=== PATIENT | male | born 1985 | race American Indian/Alaskan Native ===

== ENCOUNTER 2019-03-18 15:30 | Emergency (ER) | payer MEDICAID ==
[2019-03-18 16:32] LABS: Bilirubin,Urine NEG (Negative); Blood,Urine NEG (Negative); Color,Urine Yellow (Yellow); Mucus,Urine FEW /HPF; Protein,Urine <15 mg/dL mg/dL (Negative); WBC,Urine < 1.0 /HPF (0.0-6.0)
--- NOTE | 2019-03-18 16:33 | Emergency Department Report ---
ED Psych HPI - General Chief Complaint: Psych Stated Complaint: MANIC EPISODE Time Seen by Provider: 03/18/19 16:22 Source: EMS Mode of arrival: Ambulatory - History of Present Illness Initial Comments: Patient is a 33-year-old male presents to the ER for new place to stay. Patient states he is having auditory and visual hallucination. Patient is rambling on about random storage. -: Sudden Associated Psychiatric Symptoms: racing thoughts, auditory hallucinations, visual hallucinations History of same: Yes Quality: constant Improves With: none Worsens With: none Associated Symptoms: denies: confusion, headache, shortness of breath, nausea, vomiting, syncope, insomnia - Related Data Allergies Allergy/AdvReac Type Severity Reaction Status Date / Time No Known Allergies Allergy Unverified 03/18/19 16:14 ED Review of Systems ROS: Stated complaint: MANIC EPISODE Other details as noted in HPI Constitutional: denies: chills, fever Eyes: denies: eye pain, eye discharge, vision change ENT: denies: ear pain, throat pain Respiratory: denies: cough, shortness of breath, wheezing Cardiovascular: denies: chest pain, palpitations Endocrine: no symptoms reported Gastrointestinal: denies: abdominal pain, nausea, diarrhea Genitourinary: denies: urgency, dysuria Musculoskeletal: denies: back pain, joint swelling, arthralgia Skin: denies: rash, lesions Neurological: denies: headache, weakness, paresthesias Psychiatric: auditory hallucinations, visual hallucinations. denies: anxiety, depression, homicidal thoughts, suicidal thoughts Hematological/Lymphatic: denies: easy bleeding, easy bruising ED Past Medical Hx - Past Medical History Previous Medical History?: Yes Hx Hypertension: Yes Hx Psychiatric Treatment: (Schizophrenia, bipolar) - Surgical History Past Surgical History?: No - Social History Smoking Status: Current Every Day Smoker Substance Use Type: Alcohol ED Physical Exam - General Limitations: No Limitations General appearance: alert, in no apparent distress - Head Head exam: Present: atraumatic, normocephalic - Eye Eye exam: Present: normal appearance - ENT ENT exam: Present: mucous membranes moist - Neck Neck exam: Present: normal inspection - Respiratory Respiratory exam: Present: normal lung sounds bilaterally. Absent: respiratory distress - Cardiovascular Cardiovascular Exam: Present: regular rate, normal rhythm. Absent: systolic murmur, diastolic murmur, rubs, gallop - GI/Abdominal GI/Abdominal exam: Present: soft, normal bowel sounds - Rectal Rectal exam: Present: deferred - Extremities Exam Extremities exam: Present: normal inspection - Back Exam Back exam: Present: normal inspection - Neurological Exam Neurological exam: Present: alert, oriented X3 - Psychiatric Psychiatric exam: Present: manic - Expanded Psychiatric Exam Expanded Focused psych exam: Present: pressured speech, restlessness, flight of ideas, loose associations - Skin Skin exam: Present: warm, dry, intact, normal color. Absent: rash ED Course Vital Signs 03/18/19 16:11 Temperature 98.4 F Pulse Rate 110 H Respiratory 18 Rate Blood Pressure 119/88 O2 Sat by Pulse 98 Oximetry - Reevaluation(s) Reevaluation #1: Initial evaluation done. Patient finding consistent with acute psychosis and patient placed on 1013. 03/18/19 16:30 Reevaluation #2: Discussed all results with patient. Patient is Medically cleared, Patient will remain on a 1013 in the ER until excepted into appropriate psychiatric facility. Patient agrees to plan of care. 03/18/19 18:49 ED Medical Decision Making - Lab Data Result diagrams: 03/18/19 16:35 03/18/19 16:35 - Medical Decision Making Patient is 33-year-old male presents for a new place to live. Patient found be having acute psychosis and patient is quite gentle with flights of ideas and appears to have stable to care for himself. Patient was placed on a 1013. Mental health consult. Labs unremarkable. Patient is medically cleared. - Differential Diagnosis mental evaluation. Medical clearance. Acute psychosis Critical care attestation.: If time is entered above; I have spent that time in minutes in the direct care of this critically ill patient, excluding procedure time. ED Disposition Clinical Impression: Acute psychosis Disposition: DC/TX-65 PSY HOSP/PSY UNIT Is pt being admited?: No Does the pt Need Aspirin: No Condition: Stable Additional Instructions: Patient is medically cleared Time of Disposition: 18:50
[2019-03-18 16:40] LABS: Amphetamine Screen,Urine PRESUMPTIVE NEGATIVE; Benzodiazepines Screen,Urine PRESUMPTIVE NEGATIVE; Cannabinoid Screen,Urine PRESUMPTIVE NEGATIVE; Cocaine Screen,Urine PRESUMPTIVE NEGATIVE; Methadone Screen,Urine PRESUMPTIVE NEGATIVE; Opiate Screen,Urine PRESUMPTIVE NEGATIVE
[2019-03-18 16:57] LABS: Hematocrit 43.8 % (35.5-45.6); Hemoglobin 15.2 gm/dl (11.8-15.2); Mean Corpuscular HGB Conc 35 % (32-34); Mean Corpuscular Volume 98 fl (84-94); Platelet Count 263 K/mm3 (140-440); Red Blood Count 4.47 M/mm3 (3.65-5.03); Red Cell Distribution Width 13.9 % (13.2-15.2)
[2019-03-18 17:10] LABS: BUN/Creatinine Ratio 8; Blood Urea Nitrogen 9 mg/dL (9-20); Calcium 9.3 mg/dL (8.4-10.2); Hemolysis Index 6
[2019-03-18 18:08] LABS: Band Neutrophils # (Manual) 0.4 K/mm3; Total Cells Counted 100
[2019-03-18 18:09] LABS: Anisocytosis 1+; Ovalocytes 1+
[2019-03-18] MEDS ORDERED: HALDOL PO PRN (20:10)
[2019-03-18] MEDS: HALDOL PO SCH (21:59)
[2019-03-18] MEDS ORDERED: NON-FORMULARY (Haloperidol [Haloperidol] 10 MG) PO SCH (22:00)
[2019-03-19] MEDS: HALDOL PO SCH ×2 (09:35→23:02)
[2019-03-19 17:21] LABS: Alanine Aminotransferase 24 units/L (7-56); Albumin 4.1 g/dL (3.9-5)
[2019-03-19 17:31] LABS: Bilirubin,Direct < 0.2 mg/dL (0-0.2)
--- NOTE | 2019-03-19 18:03 | Consultation ---
History of Present Illness - Reason for Consult Consult date: 03/19/19 Reason for consult: psych eval - Chief Complaint Chief complaint: "She told me to come and get my medicines adjusted." - History of Present Psychiatric Illness "My thoughts were rushing." He states the medicines "quiet my thoughts." 33 yo M arrived to [facility]ED and placed on a 1013 for "acute psychosis- avh". After several minutes of questions regarding his medicine and treatment, he says he takes Invega monthly but has not had it every month. He says he takes 234mg and takes either seroquel or haldol with it. He also takes 1500mg of depakote. He also says he is on the ACT team with [employer] [facility] [employer]. He states he can't sleep like he needs to. He says he has a roommate and attends a day program through [employer]. He reports a history of Bipolar and Schizophrenia. 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 Medications and Allergies Allergies Allergy/AdvReac Type Severity Reaction Status Date / Time No Known Allergies Allergy Unverified 03/18/19 16:14 Home Medications Medication Instructions Recorded Confirmed Last Taken Type Divalproex ER [DepaKOTE ER] 1,000 mg PO QHS 03/18/19 03/18/19 03/18/19 History Haloperidol 10 mg PO BID 03/18/19 03/18/19 03/18/19 History Active Meds: Active Medications Divalproex Sodium (Depakote Er) 1,000 mg PO QHS [facility] Last Admin: 03/18/19 21:59 Dose: 1,000 mg Documented by: Haloperidol (Haldol) 10 mg PO BID [facility] Last Admin: 03/19/19 09:35 Dose: 10 mg Documented by: Mental Status Exam - Vital signs Last Vital Signs Temp 98.2 F 03/19/19 16:31 Pulse 95 H 03/19/19 16:31 Resp 18 03/19/19 16:31 BP 131/86 03/19/19 16:31 Pulse Ox 99 03/19/19 16:31 - Exam Orientation: time, place, person Affect: other (constricted) Mood: calm Thought content: other (denies SI/HI) Thought Process: Circumstantial ("thoughts were rushing") Perceptions: other (denies and then says, meds "quiet my thoughts") Speech: normal rate and pattern Concentration: focused Motor activity: normal Level of consciousness: alert Memory: Intact Sleep Symptoms: Difficulty Falling Asleep Interaction: cooperative (insight is minimal) Results Result Diagrams: 03/18/19 16:35 03/18/19 16:35 Abnormal lab results 03/18/19 Range/Units 16:35 Monocytes % (Manual) 19.0 H (0.0-7.3) % Monocytes # (Manual) 1.9 H (0.0-0.8) K/mm3 All other labs normal. Assessment and Plan Assessment and plan: Impression: hx schizoaffective bipolar type ddx: bipolar with psychosis recommendation: contact [facility] ACT team to determine his status and recent medications He remembers getting Invega Sustenna 234mg last week but missed the month before. Once information is obtained, consult literature on the missed invega sustenna injection, as the recommendation of the next injection dose varies, depending on when his injection was done prior to the one last week. give haldol 10mg bid as ordered and monitor for eps give depakote er 1500mg hs. LFTs ordered. VPA level ordered for tomorrow. dispo: follow up in 24 hours to determine if he should follow up with ACT services or inpatient psych treatment will staff with Dr. Nelson
--- NOTE | 2019-03-20 09:37 | Progress Note ---
Subjective - Reason for Consult Consult date: 03/20/19 Reason for consult: Psychiatry Follow-up - Chief Complaint Chief complaint: "Hello" 33 yo AA male who presented to the Er for acute psychosis. Today the patient was labile during the assessment. He was asked several questions about his mental health, but his answers were not logical. The patient smile and laugh inappropriately during the interview. He was able to state that he receive the Invega injection. He denies Si/Hi's and VH's. He would not confirm or deny AH's. - Mental Status Exam - Vital signs Last Vital Signs Temp 97.6 F 03/20/19 07:54 Pulse 68 03/20/19 07:54 Resp 18 03/20/19 07:54 BP 139/87 03/20/19 07:54 Pulse Ox 98 03/20/19 07:54 - Exam Narrative exam: MSE: Appearance: cooperative Behavior: regular eye contact Speech: regular rate and tone Mood: labile Affect: congruent to mood Thought Process: tangential, disorganized Thought Content: denies SI/HI's and VH's Motor Activity: ambulatory Cognition: A/O x 3 Insight: poor Judgment: poor Assessment and Plan Impression: Unspecified Psychosis. Today patient was labile during the assessment. DDx: Schizophrenia, Bipolar Do with psychosis Recommendation/Plan: Continue 1013 and gather collateral information. Continue Depakote 1500 mg PO HS for mod, and Haldol 10 mg Po BID for psychosis. Dispo: The patient was referred to inpatient psy services. Will staff with Dr Nikhil Nelson.
[2019-03-20] MEDS: HALDOL PO SCH ×2 (10:56→21:46)
[2019-03-21] MEDS: HALDOL PO SCH ×2 (10:54→22:07)
--- NOTE | 2019-03-21 11:15 | Progress Note ---
Subjective - Reason for Consult Consult date: 03/21/19 Reason for consult: Psychiatry Follow=up - Chief Complaint Chief complaint: "Things are getting better" 33 yo AA male who presented to the Er for acute psychosis. Today the patient was calm and cooperative during the assessment. He stated that he feel better mentally when asked. He wasn't preoccupied during the interview as he was yesterday. He stated that he slept well last night. He denies SI/HI's and AVH's. He denies any side effects of his medications. Mental Status Exam - Vital signs Last Vital Signs Temp 98.4 F 03/21/19 08:12 Pulse 80 03/21/19 08:12 Resp 18 03/21/19 08:12 BP 109/83 03/21/19 08:12 Pulse Ox 98 03/21/19 08:12 - Exam Narrative exam: MSE: Appearance: calm, cooperative Behavior: regular eye contact Speech: regular rate and tone Mood: 'okay" Affect: congruent to mood Thought Process: circumstantial Thought Content: denies SI/HI's and AVH's Motor Activity: ambulatory Cognition: A/O x 3 Insight: variable to fair Judgment: variable to fair Assessment and Plan Impression: Unspecified Psychosis. Today patient was calm and cooperative during the assessment. DDx: Schizophrenia, Bipolar Do with psychosis Recommendation/Plan: Reevaluate the patient's 1013 in 24 hours. Continue Depakote 1500 mg PO HS for mod, and Haldol 10 mg Po BID for psychosis. Dispo: If the patient's 1013 is rescinded in 24 hours, he can follow up with [facility] for outpatient psy services. Will staff with Dr Nikhil Nelson.
[2019-03-22] MEDS: HALDOL PO SCH (09:59)
--- NOTE | 2019-03-22 15:10 | Progress Note ---
Subjective - Reason for Consult Consult date: 03/22/19 Reason for consult: Psychiatric Follow-up Evaluation - Chief Complaint Chief complaint: "I feel good." Patient is a 33 yo AA male who presented to the ER for acute psychosis. Today the patient is cooperative but anxious during the assessment. He reports good sleep and appetite. Patient denies SI/HI's, A/VH's, and delusions. Upon discharge patient will return to a shelter, [address] [place] [address]. [id number]. Provider called patient's mom [phone] to gain collateral at 3:22pm. Patient reports medication compliance. Medication is effective. No side effects noted/reported. Per assigned RN patient has not exhibited any symptoms of psychosis or behavioral disturbances. Mental Status Exam - Vital signs Last Vital Signs Temp 98.7 F 03/22/19 14:51 Pulse 86 03/22/19 14:51 Resp 18 03/22/19 14:51 BP 132/90 03/22/19 14:51 Pulse Ox 99 03/22/19 14:51 - Exam Narrative exam: Mental Status Exam Appearance: anxious, cooperative Behavior: regular eye contact Speech: regular rate and tone Mood: "I feel good" Affect: congruent to mood Thought Process: circumstantial Thought Content: denies SI/HI's, AVH's, delusions Motor Activity: ambulatory Cognition: A/O x 3 Insight: fair Judgment: fair Assessment and Plan Impression: Unspecified Psychosis. Today the patient is cooperative but anxious during the assessment. He denies SI/HI's, A/VH's, and delusions. At the time of discharge patient is in no imminent danger to self/others. DDx: Schizophrenia, Bipolar Do with psychosis Recommendation/Plan: 1. Will rescind 1013. No longer meets criteria. 2. Continue Depakote 1500 mg PO HS for mood and Haldol 10 mg Po BID for psychosis. Disposition: Will rescind patient's 1013. Patient can follow up with [facility] for outpatient psychiatric services. Will staff with Dr Nikhil Nelson.
[2019-03-22 20:16] VITALS: BP 116/74
== END 2019-03-22 20:50 | disposition home or self-care (01) ==
LOC: EEVIPCON 15:30 → ED 15:30
DX: F29 Unspecified psychosis not due to a substance or known physiological condition (principal)
CPT/HCPCS: 36415; 80048; 80076; 80164; 80307; 80320; 81001; 82150; 83690; 85007; 85025; G0480

== ENCOUNTER 2019-04-09 22:51 | Emergency (ER) | payer MEDICAID ==
[2019-04-09 23:47] LABS: Basophils # (Auto) 0.1 K/mm3 (0.0-0.1); Eosinophils # (Auto) 0.1 K/mm3 (0.0-0.4); Eosinophils % (Auto) 0.9 % (0.0-4.3); Hematocrit 40.7 % (35.5-45.6); Hemoglobin 14.4 gm/dl (11.8-15.2); Lymphocytes # (Auto) 4.2 K/mm3 (1.2-5.4); Mean Corpuscular HGB Conc 35 % (32-34); Mean Corpuscular Volume 98 fl (84-94); Monocytes # (Auto) 1.3 K/mm3 (0.0-0.8); Monocytes % (Auto) 14.6 % (0.0-7.3); Platelet Count 263 K/mm3 (140-440); Red Blood Count 4.18 M/mm3 (3.65-5.03); Red Cell Distribution Width 13.7 % (13.2-15.2)
[2019-04-10 00:10] LABS: Bilirubin,Urine NEG (Negative); Blood,Urine NEG (Negative); Color,Urine Yellow (Yellow); Protein,Urine <15 mg/dL mg/dL (Negative)
[2019-04-10 00:15] LABS: Amphetamine Screen,Urine PRESUMPTIVE NEGATIVE; Benzodiazepines Screen,Urine PRESUMPTIVE NEGATIVE; Cannabinoid Screen,Urine PRESUMPTIVE NEGATIVE; Cocaine Screen,Urine PRESUMPTIVE NEGATIVE; Methadone Screen,Urine PRESUMPTIVE NEGATIVE; Opiate Screen,Urine PRESUMPTIVE NEGATIVE
[2019-04-10 00:37] LABS: BUN/Creatinine Ratio 9; Blood Urea Nitrogen 9 mg/dL (9-20); Calcium 9.1 mg/dL (8.4-10.2); Hemolysis Index 11
--- NOTE | 2019-04-10 01:09 | Emergency Department Report ---
<GENARO DOBBS - Last Filed: 04/10/19 01:06> ED Psych HPI - General Chief Complaint: Psych Stated Complaint: MED REFILL Time Seen by Provider: 04/10/19 01:02 Source: patient Mode of arrival: Ambulatory - History of Present Illness Initial Comments: Patient is 33 years old male with history of bipolar disorder. Patient presented to the ER stating that she is not feeling well and he wanted to be assessed by psychiatric doctor. He stated that he is out of his Risperdal and Inderal for a while. Patient denies any auditory or visual hallucination. He also denied any suicidal or homicidal ideation. MD Complaint: other - Related Data Home Medications Medication Instructions Recorded Confirmed Last Taken Divalproex ER [DepaKOTE ER] 1,000 mg PO QHS 03/18/19 03/18/19 03/18/19 Haloperidol 10 mg PO BID 03/18/19 03/18/19 03/18/19 Allergies Allergy/AdvReac Type Severity Reaction Status Date / Time cocaine Allergy Vomiting Verified 04/09/19 23:12 ED Review of Systems Comment: All other systems reviewed and negative Constitutional: denies: chills, fever Respiratory: denies: cough, shortness of breath, SOB with exertion Cardiovascular: denies: chest pain, palpitations Gastrointestinal: denies: abdominal pain, nausea, vomiting, diarrhea, constipation, hematemesis, melena, hematochezia Genitourinary: denies: urgency Musculoskeletal: denies: back pain Neurological: denies: headache, weakness, numbness, paresthesias, confusion ED Past Medical Hx - Past Medical History Previous Medical History?: Yes Hx Hypertension: Yes Hx Psychiatric Treatment: (Schizophrenia, bipolar) Additional medical history: brain injury - Surgical History Past Surgical History?: Yes Additional Surgical History: brain - Social History Smoking Status: Never Smoker Substance Use Type: None - Medications Home Medications: Home Medications Medication Instructions Recorded Confirmed Last Taken Type Divalproex ER [DepaKOTE ER] 1,000 mg PO QHS 03/18/19 03/18/19 03/18/19 History Haloperidol 10 mg PO BID 03/18/19 03/18/19 03/18/19 History ED Physical Exam - General Limitations: No Limitations General appearance: alert, in no apparent distress - Head Head exam: Present: atraumatic, normocephalic, normal inspection - Eye Eye exam: Present: normal appearance, PERRL - ENT ENT exam: Present: normal exam, normal orophraynx, mucous membranes moist - Neck Neck exam: Present: normal inspection, full ROM. Absent: tenderness, meningismus, lymphadenopathy, thyromegaly - Respiratory Respiratory exam: Present: normal lung sounds bilaterally - Cardiovascular Cardiovascular Exam: Present: regular rate, normal rhythm, normal heart sounds - GI/Abdominal GI/Abdominal exam: Present: soft, normal bowel sounds. Absent: distended, tenderness, guarding, rebound, rigid, organomegaly, mass, bruit, pulsatile mass, hernia - Extremities Exam Extremities exam: Present: normal inspection, full ROM, normal capillary refill. Absent: pedal edema, calf tenderness - Back Exam Back exam: Present: normal inspection, full ROM. Absent: tenderness, CVA tenderness (R), CVA tenderness (L), muscle spasm, paraspinal tenderness, vertebral tenderness - Neurological Exam Neurological exam: Present: alert, oriented X3, CN II-XII intact, normal gait - Psychiatric Psychiatric exam: Present: normal mood, flat affect. Absent: depressed, agitated, anxious, manic, homicidal ideation, suicidal ideation - Skin Skin exam: Present: warm, intact, normal color ED Medical Decision Making - Lab Data Result diagrams: 04/09/19 23:17 04/09/19 23:17 ED Disposition Clinical Impression: Bipolar disorder Disposition: Z-07 PAT REG,NO TRIAGE Is pt being admited?: No Condition: Stable Instructions: Bipolar Disorder (ED) Additional Instructions: He is return if there is any homicidal suicidal ideation Referrals: [facility] [Outside] - 3-5 Days PRIMARY CARE, [Primary Care Provider] - 3-5 Days <PINO SUN - Last Filed: 04/10/19 15:03> ED Review of Systems ROS: Stated complaint: MED REFILL Other details as noted in HPI ED Course Vital Signs 04/10/19 04/10/19 05:51 08:50 Temperature 98.1 F 97.9 F Pulse Rate 61 106 H Respiratory 18 15 Rate Blood Pressure 147/89 114/82 [Right] O2 Sat by Pulse 100 100 Oximetry ED Medical Decision Making - Lab Data Result diagrams: 04/09/19 23:17 04/09/19 23:17 - Medical Decision Making addendum by Pino Sun M.D. On my exam the patient denies any homicidal suicidal ideation the patient was evaluated by mental health and deemed not a danger to himself either Critical care attestation.: If time is entered above; I have spent that time in minutes in the direct care of this critically ill patient, excluding procedure time. ED Disposition Is pt being admited?: No Does the pt Need Aspirin: No
[2019-04-10 15:16] VITALS: BP 121/78
== END 2019-04-10 15:10 | disposition left against medical advice (07) ==
LOC: EEVIPCON 22:51 → ED 22:51
DX: F31.9 Bipolar disorder, unspecified (principal); I10 Essential (primary) hypertension; F20.9 Schizophrenia, unspecified; F14.10 Cocaine abuse, uncomplicated; Z79.899 Other long term (current) drug therapy; Z98.890 Other specified postprocedural states
CPT/HCPCS: 36415; 80048; 80307; 80320; 81001; 85025; G0480

== ENCOUNTER 2019-07-23 22:47 | Emergency (ER) | payer MEDICAID ==
[2019-07-23 23:44] LABS: Basophils # (Auto) 0.1 K/mm3 (0.0-0.1); Basophils % (Auto) 0.7 % (0.0-1.8); Eosinophils # (Auto) 0.1 K/mm3 (0.0-0.4); Hematocrit 42.7 % (35.5-45.6); Hemoglobin 14.6 gm/dl (11.8-15.2); Lymphocytes # (Auto) 3.9 K/mm3 (1.2-5.4); Lymphocytes % (Auto) 37.9 % (13.4-35.0); Mean Corpuscular HGB Conc 34 % (32-34); Mean Corpuscular Volume 96 fl (84-94); Monocytes # (Auto) 1.3 K/mm3 (0.0-0.8); Monocytes % (Auto) 12.6 % (0.0-7.3); Platelet Count 252 K/mm3 (140-440); Red Blood Count 4.43 M/mm3 (3.65-5.03)
[2019-07-24 00:03] LABS: BUN/Creatinine Ratio 12; Blood Urea Nitrogen 13 mg/dL (9-20); Calcium 8.9 mg/dL (8.4-10.2); Hemolysis Index 14
[2019-07-24 01:23] LABS: Bilirubin,Urine NEG (Negative); Blood,Urine NEG (Negative); Color,Urine Straw (Yellow); Protein,Urine <15 mg/dL mg/dL (Negative); Urobilinogen,Urine < 2.0 mg/dL (<2.0); WBC,Urine < 1.0 /HPF (0.0-6.0)
[2019-07-24 01:30] LABS: Amphetamine Screen,Urine PRESUMPTIVE NEGATIVE; Benzodiazepines Screen,Urine PRESUMPTIVE NEGATIVE; Cannabinoid Screen,Urine PRESUMPTIVE NEGATIVE; Cocaine Screen,Urine PRESUMPTIVE NEGATIVE; Methadone Screen,Urine PRESUMPTIVE NEGATIVE; Opiate Screen,Urine PRESUMPTIVE NEGATIVE
--- NOTE | 2019-07-24 02:31 | Emergency Department Report ---
ED Psych HPI - General Chief Complaint: Psych Stated Complaint: HOMICIDAL/SUICIDAL/MH EVAL Time Seen by Provider: 07/24/19 01:29 Source: patient Mode of arrival: Ambulatory - History of Present Illness Initial Comments: 34-year-old male with history of schizophrenia and bipolar disorder presents to ED with report of suicidal or homicidal ideation. Patient reported SI and HI to triage nurse, however he now tells me that he no longer having SI or HI. Patient needs much redirection, and tends to have tangential speech. Patient reports he is noncompliant with his psychiatric medications. MD Complaint: suicidal ideation -: unknown Associated Psychiatric Symptoms: suicidal ideation, homicidal ideation Quality: changing over time Improves With: none Worsens With: none Associated Symptoms: denies other symptoms Treatments Prior to Arrival: none If Self Harm: admits thoughts of - Related Data Home Medications Medication Instructions Recorded Confirmed Last Taken Divalproex ER [DepaKOTE ER] 1,000 mg PO QHS 03/18/19 03/18/19 03/18/19 Haloperidol 10 mg PO BID 03/18/19 03/18/19 03/18/19 Allergies Allergy/AdvReac Type Severity Reaction Status Date / Time cocaine Allergy Vomiting Verified 04/09/19 23:12 ED Review of Systems ROS: Stated complaint: HOMICIDAL/SUICIDAL/MH EVAL Other details as noted in HPI Comment: All other systems reviewed and negative Psychiatric: homicidal thoughts, suicidal thoughts. denies: auditory hallucinations, visual hallucinations ED Past Medical Hx - Past Medical History Previous Medical History?: Yes Hx Hypertension: Yes Hx Psychiatric Treatment: (Schizophrenia, bipolar) Additional medical history: brain injury - Surgical History Past Surgical History?: Yes Additional Surgical History: brain - Social History Smoking Status: Current Every Day Smoker Substance Use Type: Cocaine, Marijuana - Medications Home Medications: Home Medications Medication Instructions Recorded Confirmed Last Taken Type Divalproex ER [DepaKOTE ER] 1,000 mg PO QHS 03/18/19 03/18/19 03/18/19 History Haloperidol 10 mg PO BID 03/18/19 03/18/19 03/18/19 History ED Physical Exam - General Limitations: No Limitations General appearance: alert, in no apparent distress - Head Head exam: Present: atraumatic, normocephalic - Eye Eye exam: Present: normal appearance - ENT ENT exam: Present: mucous membranes moist - Neck Neck exam: Present: normal inspection - Respiratory Respiratory exam: Present: normal lung sounds bilaterally. Absent: respiratory distress - Cardiovascular Cardiovascular Exam: Present: regular rate, normal rhythm - GI/Abdominal GI/Abdominal exam: Absent: distended - Extremities Exam Extremities exam: Present: normal inspection - Neurological Exam Neurological exam: Present: alert, oriented X3 - Psychiatric Psychiatric exam: Present: normal affect, normal mood - Skin Skin exam: Present: warm, dry, intact, normal color ED Course Vital Signs 07/24/19 07/24/19 01:45 08:39 Temperature 98.3 F 97.7 F Pulse Rate 98 H 93 H Respiratory 16 Rate Blood Pressure 129/94 140/87 [Left] O2 Sat by Pulse 99 98 Oximetry ED Medical Decision Making - Lab Data Result diagrams: 07/23/19 23:08 07/23/19 23:08 - Medical Decision Making 34 yo M with hx of bipolar and schizophrenia presents with SI and HI "all day." Pt will be placed on a 1013 for mental health evaluation. - Differential Diagnosis SI, HI Critical care attestation.: If time is entered above; I have spent that time in minutes in the direct care of this critically ill patient, excluding procedure time. ED Disposition Clinical Impression: Mood disorder Disposition: DC-01 TO HOME OR SELFCARE Is pt being admited?: No Condition: Stable Instructions: Suicide Prevention for Adults (ED) Additional Instructions: Please follow-up with your normal outpatient psychiatric services. Return to the emergency Department with any worsening of your symptoms, thoughts of harming yourself or others, or with any acute distress. Referrals: [facility] [Outside] - 2-3 Days [facility] [Outside] - 2-3 Days
[2019-07-24 08:40] VITALS: BP 140/87
--- NOTE | 2019-07-24 09:38 | Consultation ---
History of Present Illness - Reason for Consult Consult date: 07/24/19 Reason for consult: Mental Health Evaluation Requesting physician: VINCENT VALENTE - Chief Complaint Chief complaint: "I am okay" - History of Present Psychiatric Illness 34 y.o. AA male who presented to the Er for SI's. Today the patient was calm and cooperative during the assessment. He stated that he came to ER because he didn 't feel well. He stated that he may have mentioned something about being suicidal, but cannot recall, He denies SI's when asked. He denies a previous suicide attempt. He stated that he is seen by [facility] for outpatient psy services and receive the monthly Invega injection that will be due this month on 28 Jul 2019. Per collateral information from the patient's thermodynamicist Thomas at [phone], he stated that the patient is seen at [facility] and can return home once discharged. The patient denies SI/HI's and AVH's. He denies erratic sleep and a poor appetite. He denies recreational drug use and alcohol consumption (etoh). He denies any abuse at his current senior care. Medications and Allergies Allergies Allergy/AdvReac Type Severity Reaction Status Date / Time cocaine Allergy Vomiting Verified 04/09/19 23:12 Home Medications Medication Instructions Recorded Confirmed Last Taken Type Divalproex ER [DepaKOTE ER] 1,000 mg PO QHS 03/18/19 03/18/19 03/18/19 History Haloperidol 10 mg PO BID 03/18/19 03/18/19 03/18/19 History Past psychiatric history - Past Medical History Past Medical History: other (Hx of sharon injury) Past Surgical History: Other (Unable to obtain ) - past Psychiatric treatment and history psychiatric treatment history: Hx of Mood DO. Unable to obtain a [facility] psy hx. - Social History Social history: other (Reside at a senior care) Mental Status Exam - Vital signs Last Vital Signs Temp 97.7 F 07/24/19 08:39 Pulse 93 H 07/24/19 08:39 Resp 16 07/24/19 01:45 BP 140/87 07/24/19 08:39 Pulse Ox 98 07/24/19 08:39 - Exam Narrative exam: MSE: Appearance: calm, cooperative Behavior: regular eye contact Speech: regular rate and tone Mood: "okay" Affect: congruent to mood Thought Process: circumstantial Thought Content: denies SI/HI's and AVH's Motor Activity: lying in bed Cognition: A/O x 3 Insight: variable to fair Judgment: fair Results Result Diagrams: 07/23/19 23:08 07/23/19 23:08 Abnormal lab results 07/23/19 07/23/19 07/23/19 Range/Units 23:08 23:08 23:08 MCV (84-94) fl MCH (28-32) pg Lymph % (Auto) (13.4-35.0) % Duc[place]ne % (Auto) (0.0-7.3) % [place]ne # (0.0-0.8) K/mm3 Sodium 136 L (137-145) mmol/L Chloride 97.4 L (98-107) mmol/L Salicylates < 0.3 L (2.8-20.0) mg/dL Acetaminophen < 5.0 L (10.0-30.0) ug/mL 07/23/19 Range/Units 23:08 MCV 96 H (84-94) fl MCH 33 H (28-32) pg Lymph % (Auto) 37.9 H (13.4-35.0) % [place]ne % (Auto) 12.6 H (0.0-7.3) % [place]ne # 1.3 H (0.0-0.8) K/mm3 Sodium (137-145) mmol/L Chloride (98-107) mmol/L Salicylates (2.8-20.0) mg/dL Acetaminophen (10.0-30.0) ug/mL All other labs normal. 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 Today the patient was calm and cooperative during the assessment. The patient is no threat to self. Medical: Hx of brain injury per the record. Recommendation/Plan: Rescind 1013. The patient receive the monthly Invega inj ection from [facility] that was confirmed. Dispo: The patient can follow up with [facility] for outpatient psy services. Staffed with Dr Nikhil Nelson.
== END 2019-07-24 12:29 | disposition home or self-care (01) ==
LOC: ED 22:47 → EEVIPCON 22:47 → ED 07-24 12:29
DX: F25.0 Schizoaffective disorder, bipolar type (principal); I10 Essential (primary) hypertension; F17.200 Nicotine dependence, unspecified, uncomplicated; F12.10 Cannabis abuse, uncomplicated; F14.10 Cocaine abuse, uncomplicated; Z98.890 Other specified postprocedural states; Z79.899 Other long term (current) drug therapy; Z88.5 Allergy status to narcotic agent
CPT/HCPCS: 36415; 80048; 80307; 80320; 81001; 85025; G0480

== ENCOUNTER 2021-11-29 23:57 | Emergency (ER) | payer MEDICAID ==
--- NOTE | 2021-11-30 00:29 | Emergency Department Report ---
ED Psych HPI - General Chief Complaint: Psych Stated Complaint: SUICIDAL THOUGHTS Time Seen by Provider: 11/30/21 00:27 Source: patient Mode of arrival: Stretcher - History of Present Illness Initial Comments: Over the past several days this patient has become increasingly depressed secondary to his social situation. He has a history of bipolar/schizophrenia. He states that he wants to but does not have a specific plan. Patient denies any other medical issues. MD Complaint: suicidal ideation, feels depressed -: Gradual, days(s) Time: 04:00 Quality: getting worse Improves With: none Worsens With: none Associated Symptoms: denies: confusion, headache, shortness of breath, nausea, vomiting, insomnia If Self Harm: admits thoughts of, other (The patient currently has no plan) - Related Data Home Medications Medication Instructions Recorded Confirmed Last Taken Divalproex ER [DepaKOTE ER] 1,000 mg PO QHS 03/18/19 11/30/21 03/18/19 haloperidoL [Haloperidol] 10 mg PO BID 03/18/19 11/30/21 03/18/19 Allergies Allergy/AdvReac Type Severity Reaction Status Date / Time cocaine Allergy Vomiting Verified 04/09/19 23:12 ED Review of Systems ROS: Stated complaint: SUICIDAL THOUGHTS Other details as noted in HPI Comment: All other systems reviewed and negative Constitutional: denies: chills, fever ENT: denies: ear pain, throat pain Respiratory: denies: cough, shortness of breath, wheezing Cardiovascular: denies: chest pain, palpitations Endocrine: no symptoms reported ED Past Medical Hx - Past Medical History Previous Medical History?: Yes Hx Hypertension: Yes Hx Psychiatric Treatment: Yes (Schizophrenia, bipolar) Additional medical history: brain injury - Surgical History Past Surgical History?: Yes Additional Surgical History: brain - Social History Smoking Status: Current Every Day Smoker Substance Use Type: None - Medications Home Medications: Home Medications Medication Instructions Recorded Confirmed Last Taken Type Divalproex ER [DepaKOTE ER] 1,000 mg PO QHS 03/18/19 11/30/21 03/18/19 History haloperidoL [Haloperidol] 10 mg PO BID 03/18/19 11/30/21 03/18/19 History ED Physical Exam - General Limitations: No Limitations General appearance: alert, anxious - Head Head exam: Present: atraumatic, normocephalic - Eye Eye exam: Present: normal appearance, PERRL, EOMI - ENT ENT exam: Present: mucous membranes moist - Neck Neck exam: Present: normal inspection - Respiratory Respiratory exam: Present: normal lung sounds bilaterally. Absent: respiratory distress - Cardiovascular Cardiovascular Exam: Present: regular rate, normal rhythm. Absent: systolic murmur, diastolic murmur, rubs, gallop - GI/Abdominal GI/Abdominal exam: Present: soft, normal bowel sounds - Rectal Rectal exam: Present: deferred - Extremities Exam Extremities exam: Present: normal inspection, full ROM - Back Exam Back exam: Present: normal inspection - Neurological Exam Neurological exam: Present: alert, oriented X3 - Psychiatric Psychiatric exam: Present: depressed, suicidal ideation ED Course Vital Signs 11/30/21 11/30/21 11/30/21 00:01 00:04 08:55 Temperature 98.4 F 97.5 F L Pulse Rate 102 H 92 H Respiratory 18 18 Rate Blood Pressure 135/85 Blood Pressure 116/78 [Left] O2 Sat by Pulse 98 100 97 Oximetry ED Medical Decision Making - Lab Data Result diagrams: 11/30/21 00:26 11/30/21 00:26 The patient's labs were reviewed without any significant abnormality noted. - Medical Decision Making The decision was made to place the patient on a 1013 due to his history. He remains cooperative and is willing to undergo a mental health evaluation which should occur today. Critical care attestation.: If time is entered above; I have spent that time in minutes in the direct care of this critically ill patient, excluding procedure time. ED Disposition Clinical Impression: Schizophrenia, acute, Depression with suicidal ideation Disposition: 01 HOME / SELF CARE / HOMELESS Is pt being admited?: No Condition: Stable Instructions: Supporting Someone With Depression, Suicidal Feelings: How to Help Yourself Referrals: FABI LIU MD [Primary Care Provider] - 3-5 Days
[2021-11-30 01:17] LABS: BUN/Creatinine Ratio 13; Blood Urea Nitrogen 12 mg/dL (9-20); Calcium 8.8 mg/dL (8.4-10.2); Hemolysis Index 9
[2021-11-30 01:26] LABS: Hematocrit 43.4 % (35.5-45.6); Hemoglobin 14.1 gm/dl (11.8-15.2); Mean Corpuscular HGB Conc 33 % (32-34); Mean Corpuscular Volume 93 fl (84-94); Platelet Count 210 K/mm3 (140-440); Red Blood Count 4.66 M/mm3 (3.65-5.03); Red Cell Distribution Width 15.6 % (13.2-15.2)
[2021-11-30] MEDS ORDERED: diphenhydrAMINE 50 MG/ML VIAL IV ONE (02:32)
[2021-11-30] MEDS ORDERED: diphenhydrAMINE 25 MG CAP PO ONE (02:51)
[2021-11-30 06:25] LABS: Bacteria,Urine 1+ /HPF (Negative); Bilirubin,Urine NEG (Negative); Blood,Urine NEG (Negative); Color,Urine Straw (Yellow); Mucus,Urine FEW /HPF; Protein,Urine <15 mg/dL mg/dL (Negative); RBC,Urine < 1.0 /HPF (0.0-6.0); Urobilinogen,Urine < 2.0 mg/dL (<2.0); WBC,Urine < 1.0 /HPF (0.0-6.0)
[2021-11-30 07:24] LABS: Amphetamine Screen,Urine Negative; Benzodiazepines Screen,Urine Negative; Cannabinoid Screen,Urine Negative; Cocaine Screen,Urine Negative; Methadone Screen,Urine Negative; Opiate Screen,Urine Negative
[2021-11-30 08:57] VITALS: BP 116/78
--- NOTE | 2021-11-30 10:51 | Consultation ---
History of Present Illness - Reason for Consult Consult date: 11/30/21 Reason for consult: Suicidal ideation - History of Present Psychiatric Illness The patient is a 36 year old male with history of Schizophrenia, and Bipolar disorder who presents to the ED with suicidal ideation. In my encounter with the patient, he is alert and oriented x2. he reports that he has been having difficulty with sleep for a couple of weeks and was feeling suicidal yesterday. The patient states he has an upcoming appointment with his psychiatrist at [facility]. The patient states he is ready to be discharged. He denies any current suicidal/homicidal ideation and denies hallucinations. PAST PSYCHIATRIC HISTORY Diagnoses: Schizophrenia, Bipolar Suicide attempts or Self-harm behavior:Denies Prior psychiatric hospitalizations: Yes Substance Abuse history:marijuana Previous psychiatric medications tried:Invega sustenna, Risperidone, Zyprexa, Depakote Outpatient treatment: Unknown SOCIAL HISTORY Marital Status: Single Living Arrangements: Lives alone Employment Status: Disability Access to guns/weapons: Denies Education: [employer] History of abuse: Denies Legal History: Denies ROS Constitutional: Negative for weight loss EMT: Respiratory: Negative for cough or hemoptysis All other systems reviewed and are negative MENTAL STATUS EXAMINATION General Appearance: Dressed appropriately. Behavior: Calm and cooperative. Good eye contact. Mood: Depressed Affect:Congruent to stated mood Speech: Normal tone and pace Thought Process: Goal oriented Thought Content: Denies Suicidal Ideation: Yes Homicidal Ideation: Denies Hallucinations: Denies Delusions: None elicited Insight and Judgment: Limited Memory/Cognition: Limited Assessment and Plan (1)Schizoaffective disorder (2) Treatment Plan Continue home medications as previously prescribed. Risks, benefits and alternatives of medications discussed with the patient, questions answered and consent obtained from patient. PSYCHOTHERAPY: Supportive psychotherapy provided MEDICAL: Per primary team DELIRIUM PRECAUTIONS: Please re-orient patient frequently, keep lights on during the day, and minimize benzodiazepines and opiates as these medications could worsen patient's confusion. 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 Will sign off. Thank you for the consult. Please contact with any questions and/or concerns. Case discussed with Dr. Nix who agrees with current disposition Medications and Allergies Medications and Allergies Allergies Allergy/AdvReac Type Severity Reaction Status Date / Time cocaine Allergy Vomiting Verified 04/09/19 23:12 Home Medications Medication Instructions Recorded Confirmed Last Taken Type Divalproex ER [DepaKOTE ER] 1,000 mg PO QHS 03/18/19 11/30/21 03/18/19 History haloperidoL [Haloperidol] 10 mg PO BID 03/18/19 11/30/21 03/18/19 History Mental Status Exam - Vital signs Last Vital Signs Temp 97.5 F L 11/30/21 08:55 Pulse 92 H 11/30/21 08:55 Resp 18 11/30/21 08:55 BP 116/78 11/30/21 08:55 Pulse Ox 97 11/30/21 08:55 Results Result Diagrams: 11/30/21 00:26 11/30/21 00:26 Abnormal lab results 11/30/21 11/30/21 11/30/21 Range/Units 00:26 00:26 00:26 RDW (13.2-15.2) % Glucose 112 H (75-100) mg/dL Salicylates < 0.3 L (2.8-20.0) mg/dL Acetaminophen 5.0 L (10.0-30.0) ug/mL 11/30/21 Range/Units 00:26 RDW 15.6 H (13.2-15.2) % Glucose (75-100) mg/dL Salicylates (2.8-20.0) mg/dL Acetaminophen (10.0-30.0) ug/mL All other labs normal.
--- NOTE | 2021-11-30 11:07 | Event Note ---
Date: 11/30/21 vss , no distress no events overnight psych assessed : d/c and OP management
[2021-11-30 11:14] LABS: Total Cells Counted 100
[2021-11-30 11:15] LABS: Large Platelets Few; Platelet Estimate Consistent w Auto; RBC Morphology Normal
== END 2021-11-30 15:30 | disposition home or self-care (01) ==
LOC: ED 23:57
DX: R45.851 Suicidal ideations (principal); I10 Essential (primary) hypertension; F17.200 Nicotine dependence, unspecified, uncomplicated; F20.9 Schizophrenia, unspecified; F32.9 Major depressive disorder, single episode, unspecified
CPT/HCPCS: 36415; 80048; 80307; 80320; 81001; 85007; 85025; 99284; G0480